=== PATIENT | female | born 1965 | race Caucasian/White ===

== ENCOUNTER → 2016-10-10 | Outpatient (CLI) | payer BC | END | disposition home or self-care (01) | LOC: C.LAB1850 15:34 | PROVIDERS: ATTEND Obstetrics & Gynecology | DX: D06.9 Carcinoma in situ of cervix, unspecified (principal) ==

== ENCOUNTER → 2016-10-10 | Outpatient (CLI) | payer BC | END | disposition home or self-care (01) | LOC: C.PAPS 08:38 | PROVIDERS: ATTEND Obstetrics & Gynecology | DX: Z01.419 Encounter for gynecological examination (general) (routine) without abnormal findings (principal) ==

== ENCOUNTER → 2016-10-17 | Outpatient (CLI) | payer BC ==
[~2016-10-17] MED LIST: OPTIRAY 320 IV PRN
--- NOTE | 2016-10-17 14:55 | DIAGNOSTIC IMAGING REPORT ---
CT OF THE ABDOMEN AND PELVIS WITH AND WITHOUT CONTRAST LIVER PROTOCOL CLINICAL HISTORY: Cervical cancer. Liver lesion. COMPARISON STUDY: CT of the abdomen and pelvis June 21, 2012. TECHNIQUE: Unenhanced, arterial and venous phase imaging was performed. Injection of 93 cc Optiray 320 IV was uneventful. Oral contrast was administered. CT DOSE: 1272.87 mGycm FINDINGS: The previously described 6 mm hypodense right hepatic lobe lesion is similar to exam of June 21, 2012. This is benign given stability. An ill-defined 2.3 cm hypodensity within the medial segment of the left hepatic lobe is minimally increased since prior exam. This is benign given relative stability and favors focal fat. The spleen, adrenal glands and pancreas are normal. Several subcentimeter renal lesions are too small to characterize but are similar to prior exam. These are suggestive of cysts. There is no hydronephrosis. There are small gallstones within the gallbladder. There is no evidence for a bowel obstruction. No enlarged abdominal or pelvic lymph nodes are identified. The uterus is surgically absent. 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 Postoperative findings involving the anterior lower abdominal/pelvic wall are unchanged. Vaginal cuff is similar appearance to prior CT. There is no ascites. No suspicious osseous lesions are present. Schmorl's nodes along the superior endplates of T11 and T12 with slight loss of height of these vertebral bodies are noted. IMPRESSION: 1. No evidence of metastatic disease within the abdomen or pelvis. 2. No significant change in the 6 mm hypodense right hepatic lobe lesion since prior CT. This is benign given stability. 3. Cholelithiasis. Electronically signed by: Vipul Castellanos M.D. 10/17/2016 2:53 PM Dictated Date/Time: 10/17/2016 2:40 PM
== END | disposition home or self-care (01) ==
LOC: C.CTS 13:54
PROVIDERS: ATTEND Obstetrics & Gynecology
DX: K76.9 Liver disease, unspecified (principal); K80.20 Calculus of gallbladder without cholecystitis without obstruction; Z85.41 Personal history of malignant neoplasm of cervix uteri

== ENCOUNTER → 2017-11-14 | Outpatient (CLI) | payer BC ==
[~2017-11-14] MED LIST changes: +ALBINS/ INH; +LIDO1PAD2; +MOME6000 NAE; +MONT1TAB3 PO; +MULTTAB58 PO; +OMEP40CA41 PO; -OPTIRAY 320 IV PRN; +PRM/45 PO; +SYMIN INH; +TIOT1SPR INH; +VNTHFA/IN INH; +[UNRECOGNIZED DRUG - OTHER] PO
== END | disposition home or self-care (01) ==
LOC: C.PAPS 18:11
PROVIDERS: ATTEND Obstetrics & Gynecology
DX: Z01.419 Encounter for gynecological examination (general) (routine) without abnormal findings (principal)

== ENCOUNTER → 2017-11-21 | Day surgery (SDC) | payer BC, OTHER ==
[2017-11-12 13:48] VITALS: BMI 26.0
[~2017-11-21] VITALS: Ht 162.6 cm; Wt 70.5 kg
[~2017-11-21] MED LIST changes: +LIDOCAINE HCL 2% 2 ML VIAL (20MG/ML) ONE; +PROPOFOL IV EMULSION 10 MG/ML 20 ML VIAL ONE; +SODIUM CHLORIDE 0.9% 500ML 500 ML IV ONE
[2017-11-21 10:33] VITALS: Ht 162.6 cm; Wt 70.5 kg
--- NOTE | 2017-11-21 10:45 | Endo History and Physical ---
History & Physical Date of Service: November 21, 2017. Chief Complaint: Screening Referring Physician: Johnathan Mcginnis History of Present Illness 52 yo CF who presents for screening colonoscopy. Past Surgical History Hx Cardiac Surgery: No Hx Internal Defibrillator: No Hx Pacemaker: No Hx Abdominal Surgery: Yes (JACQUIE, HERNIA REPAIR) Hx Post-Op Nausea and Vomiting: No Hx Cancer Surgery: Yes (YOLANDE BSO) Hx Thoracic Surgery: No Hx Orthopedic: No Hx Urinary Tract Surgery: No Family History None Social History Smoking Status: Never Smoker Hx Substance Use: No Hx Alcohol Use: No Allergies Uncoded Allergies: FENTANYL PATCH (Allergy, Severe, ANAPHYLAXIS, 11/12/17) COULDN'T BREATHE Current Medications Reported Home Medications Medications Dose Route/Sig Max Daily Dose Days Date Category Mometasone Furoate (Mometasone Furoate (Nasal)) 50 Mcg/Act Spr 2 Sprays ALANNA BID 11/12/17 Reported [Macula] 100 Mg PO MONTHLY 11/12/17 Reported Ventolin Hfa (Albuterol) 200 Puffs/49278 Mcg Aers 2-4 Puffs INH BID 11/12/17 Reported Symbicort 160-4.5 Mcg/Act (Budesonide/Formoterol Fumarate) 60 Puffs/Inhaler Aero 1 Puff INH BID 11/12/17 Reported Spiriva Respimat (Tiotropium [place]) 2.5 Mcg/Act Spr 2 Puff INH BID 11/12/17 Reported Singulair (Montelukast Sodium) 10 Mg Tab 1 Tab PO DAILY 90 11/12/17 Reported Prilosec (Omeprazole) 40 Mg Cap 1 Cap PO DAILY 30 11/12/17 Reported Premarin (Estrogens Conjugated) 0.45 Mg Tab 0.45 Mg PO DAILY 11/12/17 Reported Multivitamin (Multiple Vitamin) 1 Tab Tab 1 Tab PO DAILY 90 11/12/17 Reported Proventil 0.083% 2.5MG/3ML (Albuterol Sulf) 2.5 Mg/3 Ml Nebu 2.5 Mg INH QID PRN 11/12/17 Reported Vital Signs Weight (Kilograms): 70.45 Height (Feet): 5 Height (Inches): 4 Physical Exam General Appearance: WD/WN, no apparent distress Respiratory/Chest: Auscultation: breath sounds normal Cardiovascular: Heart Auscultation: RRR Abdomen: Bowel Sounds: normal Inspection & Palpation: soft, non-distended, no tenderness, guarding & rebound Assessment and Plan Assessment: 52 yo CF who presents for screening colonoscopy. Plan: Proceed with colonoscopy.
--- NOTE | 2017-11-21 11:33 | Discharge Instructions ---
Endoscopy Patient Instructions Date / Procedure(s) Performed November 21, 2017. Colonoscopy Allergy Information Uncoded Allergies: FENTANYL PATCH (Allergy, Severe, ANAPHYLAXIS, 11/12/17) COULDN'T BREATHE Discharge Date / Findings November 21, 2017. Biopsies of the ileocecal valve Internal hemorrhoids Medication Instructions Stopped Medication(s): NO ASA OK to resume all medications today as prescribed Reported Home Medications Medications Dose Route/Sig Max Daily Dose Days Date Category Mometasone Furoate (Mometasone Furoate (Nasal)) 50 Mcg/Act Spr 2 Sprays ALANNA BID 11/12/17 Reported [Macula] 100 Mg PO MONTHLY 11/12/17 Reported Ventolin Hfa (Albuterol) 200 Puffs/01155 Mcg Aers 2-4 Puffs INH BID 11/12/17 Reported Symbicort 160-4.5 Mcg/Act (Budesonide/Formoterol Fumarate) 60 Puffs/Inhaler Aero 1 Puff INH BID 11/12/17 Reported Spiriva Respimat (Tiotropium [place]) 2.5 Mcg/Act Spr 2 Puff INH BID 11/12/17 Reported Singulair (Montelukast Sodium) 10 Mg Tab 1 Tab PO DAILY 90 11/12/17 Reported Prilosec (Omeprazole) 40 Mg Cap 1 Cap PO DAILY 30 11/12/17 Reported Premarin (Estrogens Conjugated) 0.45 Mg Tab 0.45 Mg PO DAILY 11/12/17 Reported Multivitamin (Multiple Vitamin) 1 Tab Tab 1 Tab PO DAILY 90 11/12/17 Reported Proventil 0.083% 2.5MG/3ML (Albuterol Sulf) 2.5 Mg/3 Ml Nebu 2.5 Mg INH QID PRN 11/12/17 Reported Provider Instructions Activity Restrictions - No exercising or heavy lifting for 24 hours. - Do not drink alcohol the day of the procedure. - Do not drive a car or operate machinery until the day after the procedure. - Do not make any important decisions or sign important papers in 24 hours after the procedure. Following Day: - Return to full activity which may include returning to work/school. Diet Start your diet with liquids and light foods (jello, soup, juice, toast). Then eat your usual diet if not nauseated. Treatment For Common After Affects For mild abdominal pain, bloating, or excessive gas: - Rest - Eat lightly - Lie on right side Follow-Up Information Follow-up with DR. DOBSON as scheduled Anesthesia Information What You Should Know You have had a procedure that required some medicine to reduce anxiety and discomfort. This treatment is called moderate sedation. After receiving the treatment, you may be sleepy, but you will be able to breathe on your own. The effects of the treatment may last for several hours. Follow these instructions along with Activity/Diet recommendations noted above: * Do NOT do anything where dizziness or clumsiness would be dangerous. * Rest quietly at home today, then you can be up and about tomorrow. * Have a responsible person stay with you the rest of today. * You may have had an I.V. today. If so, you may take the dressing off later today. Recommendations Call your doctor if: * Trouble breathing * Continuous vomiting for more than 24 hours * Temperature above 101 degrees * Severe abdominal pain or bloating * Pain not relieved by pain medicine ordered * There is increased drainage or redness from any incision * A large amount of rectal bleeding greater than 2-3 tablespoons. (If you had a polyp/s removed or have hemorrhoids, a small amount of blood - from the rectum is to be expected.) * You have any unanswered questions or concerns. IN THE EVENT OF A SERIOUS EMERGENCY, GO TO THE NEAREST EMERGENCY ROOM Your discharge instructions were prepared by provider Fran South. Patient Instructions Signature Page Lynette Hinojosa Patient (or Guardian) Signature/Date: I have read and understand the instructions given to me by my caregivers. Caregiver/RN/Doctor Signature/Date: The above-named patient and/or guardian has received patient instructions on this date. + Original Patient Signature Page (only) stays with chart. Please make copy for patient.
--- NOTE | 2017-11-21 11:53 | GI REPORT ---
Patient Name: Lynette Hinojosa Procedure Date: 11/21/2017 11:09 AM Date of : 1965 Admit Type: Outpatient Age: 52 Gender: Female Attending MD: Fran South DO Procedure: Colonoscopy Providers: Fran South DO Referring MD: Beverly Bennett Indications: Screening for colorectal malignant neoplasm Medicines: Monitored Anesthesia Care Complications: No immediate complications. Estimated Blood Loss: Estimated blood loss: none. Procedure: Pre-Anesthesia Assessment: - Prior to the procedure, a History and Physical was performed, and patient medications and allergies were reviewed. The patient's tolerance of previous anesthesia was also reviewed. The risks and benefits of the procedure and the sedation options and risks were discussed with the patient. All questions were answered, and informed consent was obtained. Prior Anticoagulants: The patient has taken no previous anticoagulant or antiplatelet agents. ASA Grade Assessment: II - A patient with mild systemic disease. After reviewing the risks and benefits, the patient was deemed in satisfactory condition to undergo the procedure. After I obtained informed consent, the scope was passed under direct vision. Throughout the procedure, the patient's blood pressure, pulse, and oxygen saturations were monitored continuously. The scope was introduced through the anus and advanced to the terminal ileum. The colonoscopy was technically difficult and complex due to restricted mobility of the colon. The patient tolerated the procedure well. The quality of the bowel preparation was evaluated using the BBPS ([place] Bowel Preparation Scale) with scores of: Right Colon = 1 (portion of mucosa seen, but other areas not well seen due to staining, residual stool and/or opaque liquid), Transverse Colon = 3 (entire mucosa seen well with no residual staining, small fragments of stool or opaque liquid) and Left Colon = 3 (entire mucosa seen well with no residual staining, small fragments of stool or opaque liquid). The total BBPS score equals 7. The quality of the bowel preparation was fair. The terminal ileum, ileocecal valve, appendiceal orifice, and rectum were photographed. Findings: The perianal and digital rectal examinations were normal. A localized area of erythematous mucosa was found at the ileocecal valve. Biopsies were taken with a cold forceps for histology. Non-bleeding internal hemorrhoids were found during retroflexion. The hemorrhoids were small. Impression: - Preparation of the colon was fair. - Erythematous mucosa at the ileocecal valve. Biopsied. - Non-bleeding internal hemorrhoids. Recommendation: - Resume previous diet. - Continue present medications. - Repeat colonoscopy for surveillance based on pathology results. - Return to primary care physician as previously scheduled. Fran South, DO 11/21/2017 11:52:55 AM This report has been signed electronically. Note Initiated On: 11/21/2017 11:09 AM Number of Addenda: 0 I attest to the content of the Intraoperative Record and orders documented therein, exceptions below {[id number]}
[2017-11-21 12:02] VITALS: BP 124/78; PULSE 64; O2SAT 97
--- NOTE | 2017-11-21 12:13 | Anesthesiology Progress Note ---
Anesthesia Post Op Note Date & Time November 21, 2017 at 12:12 Vital Signs Pain Intensity: 0 Vital Signs Past 12 Hours Date Time Temp Pulse Resp B/P (MAP) Pulse Ox O2 Delivery O2 Flow Rate FiO2 11/21/17 12:02 64 18 124/78 (93) 97 Room Air 11/21/17 11:47 88 18 115/70 (85) 97 Room Air 11/21/17 11:32 88 16 100/67 (78) 97 Room Air 11/21/17 10:53 36.5 71 18 142/85 (104) 99 Room Air Notes Mental Status: alert / awake / arousable, participated in evaluation Pt Amnestic to Procedure: Yes Nausea / Vomiting: adequately controlled Pain: adequately controlled Airway Patency, RR, SpO2: stable & adequate BP & HR: stable & adequate Hydration State: stable & adequate Anesthetic Complications: no major complications apparent
== END | disposition home or self-care (01) ==
LOC: C.GI 09:38
PROVIDERS: ATTEND Internal Medicine
DX: Z12.11 Encounter for screening for malignant neoplasm of colon (principal); K64.8 Other hemorrhoids; J45.909 Unspecified asthma, uncomplicated; Z90.710 Acquired absence of both cervix and uterus; Z88.5 Allergy status to narcotic agent; Z79.899 Other long term (current) drug therapy; Z85.41 Personal history of malignant neoplasm of cervix uteri